=== PATIENT | female | born 1955 | race Caucasian/White ===

== ENCOUNTER 2018-03-12 07:48 | Emergency (ER) | payer OTHER ==
[2018-03-12 08:09] VITALS: TEMP 99.6; BMI 30.1
--- NOTE | 2018-03-12 08:36 | PDOC ---
History of Present Illness - General Chief Complaint: Respiratory Stated Complaint: DIFFICULTY BREATHING Time Seen by Provider: 03/12/18 08:30 History Source: Patient Exam Limitations: No Limitations - History of Present Illness Initial Comments: 03/12/18 08:45 62 yr female history of COPD on 2 days Amox 875mg bid for "possible strep" presents to ER with sore throat, cough chest tightness. PT had fever 2 days ago no fever now. Pt took tylenol yesterday . Pt denies nausea or chest pain, uses inhaler daily for COPD. 03/12/18 09:33 Timing/Duration: reports: constant, getting worse Severity: reports: moderate Possible Cause: Yes: occasional episodes Past History - Past Medical History Allergies/Adverse Reactions: Allergies Allergy/AdvReac Type Severity Reaction Status Date / Time No Known Allergies Allergy Verified 03/12/18 08:04 Home Medications: Ambulatory Orders Atorvastatin Ca [Lipitor] 40 mg PO AM 06/22/11 Quinapril HCl/Mag Cb(Ant) [Accupril] 20 mg PO DAILY 06/22/11 Amox-Tr/K Cl [Augmentin - 875Mg Tablet] 1 tab PO BID 03/12/18 Dextromethorphan/Benzocaine [Cepacol Sorethroat-[place]] 1 each PO QID #30 lozenge 03/12/18 Prednisone [Deltasone] 40 mg PO DAILY #10 tablet 03/12/18 Tiotropium Br/Olodaterol HCl [Stiolto Respimat Inhal [place]] 2 pt IH DAILY Anemia: No Asthma: No Cancer: No Cardiac Disorders: No CVA: No COPD: Yes CHF: No Dementia: No Diabetes: No GI Disorders: No Disorders: No HTN: Yes Hypercholesterolemia: Yes Liver Disease: No Seizures: No Thyroid Disease: No - Surgical History Abdominal Surgery: No Appendectomy: No Cardiac Surgery: No Cholecystectomy: No Lung Surgery: No Neurologic Surgery: No Orthopedic Surgery: No - Suicide/Smoking/Psychosocial Hx Smoking Status: No Smoking History: Former smoker Have you smoked in the past 12 months: No Number of Cigarettes Smoked Daily: 0 If you are a former smoker, when did you quit?: 1987 Information on smoking cessation initiated: No Hx Alcohol Use: No Drug/Substance Use Hx: No Substance Use Type: None Hx Substance Use Treatment: No *Physical Exam - Vital Signs Last Vital Signs Temp Pulse Resp BP Pulse Ox 99.6 F 110 H 20 153/73 99 03/12/18 08:04 03/12/18 08:04 03/12/18 08:04 03/12/18 08:04 03/12/18 08:04 - Physical Exam General Appearance: Yes: Nourished, Appropriately Dressed HEENT: positive: EOMI, STEPHANIE, TMs Normal, Pharyngeal Erythema. negative: Tonsillar Exudate, Tonsillar Erythema Neck: positive: Supple, Tender lateral. negative: Tender, Lymphadenopathy (R), Lymphadenopathy (L), Tender midline Respiratory/Chest: positive: Lungs Clear, Decreased Breath Sounds (right base ) . 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 *DC/Admit/Observation/Transfer Diagnosis at time of Disposition: COPD exacerbation Pharyngitis Qualifiers: Pharyngitis/tonsillitis etiology: unspecified etiology Qualified Code(s): J02.9 - Acute pharyngitis, unspecified - Discharge Dispostion Disposition: HOME Condition at time of disposition: Improved - Prescriptions Prescriptions: Dextromethorphan/Benzocaine [Cepacol Sorethroat-[place]] 1 each PO QID #30 lozenge Prednisone [Deltasone] 40 mg PO DAILY #10 tablet - Referrals Referrals: Herve Sullivan MD [Primary Care Provider] - - Patient Instructions Additional Instructions: drink pleanty of water to stay well hydrated take the next dose of prednisone tomorrow morning and take for 5 days use your inhaler as directed gargle with warm salt water 4-5 times a day for sore throat tea with honey and lemon stop the Amoxicillin - Post Discharge Activity
[2018-03-12] MEDS ORDERED: ALBUTEROL SO4 2.5/IPRATROPIUM 0.5 INH SOL 3 ML VIAL.NEB. NEB ONE ×4 (08:44→09:39)
--- NOTE | 2018-03-12 08:45 | PDOC ---
*Physical Exam - Vital Signs Last Vital Signs Temp Pulse Resp BP Pulse Ox 99.6 F 110 H 20 153/73 99 03/12/18 08:04 03/12/18 08:04 03/12/18 08:04 03/12/18 08:04 03/12/18 08:04 Medical Decision Making - Medical Decision Making 03/12/18 08:45 Pt seen by Midlevel Provider under my direct supervision Ancillary studies reviewed I agree with plan as outlined by Midlevel Provider *DC/Admit/Observation/Transfer Diagnosis at time of Disposition: COPD exacerbation, Pharyngitis - Discharge Dispostion Disposition: HOME Condition at time of disposition: Improved - Prescriptions Prescriptions: Dextromethorphan/Benzocaine [Cepacol Sorethroat-[place]] 1 each PO QID #30 lozenge Prednisone [Deltasone] 40 mg PO DAILY #10 tablet - Referrals Referrals: Herve Sullivan MD [Primary Care Provider] - - Patient Instructions Additional Instructions: drink pleanty of water to stay well hydrated take the next dose of prednisone tomorrow morning and take for 5 days use your inhaler as directed gargle with warm salt water 4-5 times a day for sore throat tea with honey and lemon stop the Amoxicillin - Post Discharge Activity Forms/Work/School Notes: Back to Work
[2018-03-12] MEDS ORDERED: predniSONE 20 MG TABLET (UD) PO ONE (09:01)
[2018-03-12] MEDS ORDERED: predniSONE 20 MG TABLET (UD) ONE (09:09)
[2018-03-12 10:15] VITALS: BP 131/86; PULSE 108
--- NOTE | 2018-03-13 09:36 | EKG ---
Test Reason : Blood Pressure : / mmHG Vent. Rate : 104 BPM Atrial Rate : 104 BPM P-R Int : 130 ms QRS Dur : 080 ms QT Int : 344 ms P-R-T Axes : 022 015 044 degrees QTc Int : 452 ms SINUS TACHYCARDIA NONSPECIFIC ST ABNORMALITY ABNORMAL ECG WHEN COMPARED WITH ECG OF 22-JUN-2011 02:47, NONSPECIFIC T WAVE ABNORMALITY NOW EVIDENT IN ANTERIOR LEADS Confirmed by MAKEDA GRAMAJO MD ([id number]) on 03/13/2018 9:36:31 AM Referred By: Confirmed By:MAKEDA GRAMAJO MD
== END 2018-03-12 10:00 | disposition home or self-care (01) ==
LOC: JER 07:48
PROC: 3E0F7GC Introduction of Other Therapeutic Substance into Respiratory Tract, Via Natural or Artificial Opening (ICD-10-PCS; principal; 2018-03-12)
DX: J02.9 Acute pharyngitis, unspecified (principal); J44.1 Chronic obstructive pulmonary disease with (acute) exacerbation
CPT/HCPCS: 71046-TC-FY; 87070; 87430; 93005; 93010; 99281-25; J7620